=== PATIENT | female | born 1970 | race Caucasian/White ===

== ENCOUNTER 2021-04-26 23:40 | Emergency (ER) | payer OTHER ==
--- NOTE | 2021-04-26 23:46 | ED Trauma-Multisystem ---
General Stated Complaint: FALL Source of Information: Patient, EMS Exam Limitations: No Limitations History of Present Illness Date Seen by Provider: Apr 26, 2021 Time Seen by Provider: 23:38 Initial Comments 51-year-old female with past medical history of hypertension coming in via EMS from home after she fell down some stairs. She was at a wedding earlier tonight and drinking, and tripped down the stairs. Unsure if there was loss of consciousness. EMS reports a laceration to the back of her head. Blood pressure was 90s over 50s. Heart rate normal. She is unsure of her last tetanus vaccine, but did get vaccinated as a child. She is denying any head pain, neck pain, back pain, chest pain, abdominal pain, extremity pain, or any other concerns Allergies and Home Medications Allergies Coded Allergies: tramadol (Verified Allergy, Unknown, 04/26/21) Patient Home Medication List Home Medication List Reviewed: Yes Review of Systems Review of Systems Constitutional: No chills, No fever Eyes: No Symptoms Reported Ears: No Symptoms Reported Nose: No Symptoms Reported Mouth: No Symptoms Reported Throat: No Symptoms to Report Respiratory: no symptoms reported Cardiovascular: No Symptoms Reported Gastrointestinal: no symptoms reported Genitourinary: no symptoms reported : No (Had a hysterectomy) Musculoskeletal: no symptoms reported Skin: no symptoms reported Psychiatric/Neurological: No Symptoms Reported All Other Systems Reviewed Negative Unless Noted: Yes Past Nhypvjt-Elboyz-Ofaxmp Hx Patient Social History Tobacco Use?: Yes Alcohol Use?: Yes Past Medical History Surgeries: Yes Hysterectomy Physical Exam Vital Signs Vital Signs - First Documented 04/26/21 23:40 Pulse 63 Resp 16 B/P (MAP) 96/52 (67) Pulse Ox 100 O2 Delivery Room Air Height, Weight, BMI Height: '" Weight: lbs. oz. kg; BMI Method: General Appearance: No Apparent Distress, WD/WN Head: Other (2 cm laceration to the back of the head) Eyes: Bilateral Eye Normal Inspection, Bilateral Eye PERRL, Bilateral Eye EOMI Ears, Nose, Throat: Hearing Grossly Normal, No Evidence of ENT Injury, No Dental Injury Neck: Normal Inspection, Non Tender, Supple, Other (C-collar in place) Cardiovascular: Regular Rate, Rhythm, No Edema, Normal Peripheral Pulses Respiratory: Chest Non Tender, Lungs Clear, Normal Breath Sounds, No Accessory Muscle Use, No Respiratory Distress Gastrointestinal: Normal Bowel Sounds, Non Tender, Soft; No Distended, No Guarding Back: Normal Inspection, No CVA Tenderness, No Vertebral Tenderness Extremity: Normal Capillary Refill, Normal Inspection, Normal Range of Motion, Non Tender, No Calf Tenderness Neurologic/Psychiatric: Alert, Oriented x3, No Motor/Sensory Deficits, Normal Mood/Affect Skin: Normal Color, Warm/Dry Lymphatic: No Adenopathy [place] Coma Score Best Eye Response ([place]): (3) Open to Voice (Intoxicated) Best Verbal Response ([place]): (5) Oriented Best Motor Response ([place]): (6) Obeys Commands Procedures/Interventions Wound Location: Scalp (occipital) Wound Length (cm): 2 Wound's Depth, Shape: superficial Wound Explored: clean Irrigated w/ Saline (ccs): 250 Betadine Prep?: Yes Anesthesia: Lidocaine w/ Epi Volume Anesthetic (ccs): 3 Staple Repair: Stapler Skin Precise (5 titus used), Patient Given Remover Progress wound hemostatic after stapling Progress/Results/Core Measures Results/Orders Lab Results Laboratory Tests Test 04/26/21 23:50 Range/Units White Blood Count 11.0 4.3-11.0 10^3/uL Red Blood Count 3.82 3.80-5.11 10^6/uL Hemoglobin 13.0 11.5-16.0 g/dL Hematocrit 39 35-52 % Mean Corpuscular Volume 102 H 80-99 fL Mean Corpuscular Hemoglobin 34 25-34 pg Mean Corpuscular Hemoglobin Concent 33 32-36 g/dL Red Cell Distribution Width 11.9 10.0-14.5 % Platelet Count 194 130-400 10^3/uL Mean Platelet Volume 10.9 9.0-12.2 fL Immature Granulocyte % (Auto) 0 % Neutrophils (%) (Auto) 66 42-75 % Lymphocytes (%) (Auto) 28 12-44 % Monocytes (%) (Auto) 4 0-12 % Eosinophils (%) (Auto) 1 0-10 % Basophils (%) (Auto) 0 0-10 % Neutrophils # (Auto) 7.2 1.8-7.8 X 10^3 Lymphocytes # (Auto) 3.1 1.0-4.0 X 10^3 Monocytes # (Auto) 0.5 0.0-1.0 X 10^3 Eosinophils # (Auto) 0.1 0.0-0.3 10^3/uL Basophils # (Auto) 0.0 0.0-0.1 10^3/uL Immature Granulocyte # (Auto) 0.0 0.0-0.1 10^3/uL Sodium Level 140 135-145 MMOL/L Potassium Level 3.7 3.6-5.0 MMOL/L Chloride Level 104 98-107 MMOL/L Carbon Dioxide Level 22 21-32 MMOL/L Anion Gap 14 5-14 MMOL/L Blood Urea Nitrogen 12 7-18 MG/DL Creatinine 0.73 0.60-1.30 MG/DL Estimat Glomerular Filtration Rate 84 BUN/Creatinine Ratio 16 Glucose Level 132 H 70-105 MG/DL Calcium Level 8.8 8.5-10.1 MG/DL My Orders Orders - MINDY MADRID MD Ct Head/Cervical Spine Wo (04/26/21 23:44) Basic Metabolic Panel (04/26/21 23:44) Cbc With Automated Diff (04/26/21 23:44) Ed Iv/Invasive Line Start (04/26/21 23:46) Dipht,Pertuss(Acell),Tet Adult (Boostrix (04/27/21 00:00) Lactated Ringers (Lr 1000 Ml Iv Solution (04/27/21 00:00) Medications Given in ED Current Medications Medications Dose Ordered Sig/Roxy Route Start Time Stop Time Status Last Admin Dose Admin Diphtheria/ Tetanus/Acell Pertussis 0.5 ml ONCE ONCE IM 04/27/21 00:00 04/27/21 00:01 DC 04/26/21 23:58 0.5 ML Vital Signs/I&O 04/26/21 23:40 Pulse 63 Resp 16 B/P (MAP) 96/52 (67) Pulse Ox 100 O2 Delivery Room Air Progress Progress Note : Progress Note 51-year-old female with above history coming in due to trauma after falling down some stairs. GCS was 14 because her eyes were closed and she does seem intoxicated. She does open her eyes to voice and she is fully oriented otherwise. Has a laceration to the back of her head but no other external signs of trauma or pain anywhere on secondary survey. Blood pressure initially was 90/50 with repeat higher than that and improving without any intervention. An IV was placed and basic labs were obtained and she was given a bolus of IV fluids given the softer blood pressure. Pressures continued to be normal after fluids. came later and discussed that it was not a significant amount of blood loss on the floor. The patients hemoglobin was also normal. CT head and c spine negative for acute finding on the overnight statrad read. Likely has a calcified meningioma that has been there. Needs an outpatient MRI brain which I alerted her and to. Her wound was stapled. No other signs of trauma. I believe she is stable for discharge with outpatient follow up. She was sent home with strict return precautions. Departure Impression Primary Impression: Scalp laceration Qualified Codes: S01.01XA - Laceration without foreign body of scalp, initial encounter Additional Impressions: Fall Qualified Codes: W19.XXXA - Unspecified fall, initial encounter Alcohol intoxication Qualified Codes: F10.929 - Alcohol use, unspecified with intoxication, unspecified Disposition: 01 HOME, SELF-CARE Condition: Stable Departure-Patient Inst. Decision time for Depature: 00:40 Patient Instructions: Laceration Repair With [facility] ED Add. Discharge Instructions: Please get the titus out in the next 7-10 days. Be careful when washing your hair that you do not pull them out. You do have what looks to be a benign (not cancer) meningioma in your brain. This will need an outpatient MRI brain to confirm. You will be sore everywhere tomorrow. Take ibuprofen and tylenol for pain. MINDY MADRID MD Apr 26, 2021 23:46
[2021-04-26 23:53] LABS: BASOPHILS % (AUTO) 0 % (0-10); EOSINOPHILS % (AUTO) 1 % (0-10); HEMATOCRIT 39 % (35-52); LYMPHOCYTES # (AUTO) 3.1 X 10^3 (1.0-4.0); LYMPHOCYTES % (AUTO) 28 % (12-44); MEAN CORPUSCULAR HEMOGLOBIN 34 pg (25-34); MEAN CORPUSCULAR HGB CONC 33 g/dL (32-36); MEAN CORPUSCULAR VOLUME 102 fL (80-99); MEAN PLATELET VOLUME 10.9 fL (9.0-12.2); MONOCYTES # (AUTO) 0.5 X 10^3 (0.0-1.0); MONOCYTES % (AUTO) 4 % (0-12); NEUTROPHILS # (AUTO) 7.2 X 10^3 (1.8-7.8); NEUTROPHILS % (AUTO) 66 % (42-75); PLATELET COUNT 194 10^3/uL (130-400)
[2021-04-26 23:54] LABS: EOSINOPHILS # (AUTO) 0.1 10^3/uL (0.0-0.3)
[2021-04-27] MEDS ORDERED: TETANUS,DIPTH,PERTUSS P/F (BOOSTRIX) 0.5 ML VIAL IM ONE
[2021-04-27] MEDS ORDERED: LACTATED RINGERS 1,000 ML IV SCH
[2021-04-27 00:12] LABS: CALCIUM 8.8 MG/DL (8.5-10.1); CREATININE SERUM 0.73 MG/DL (0.60-1.30); POTASSIUM 3.7 MMOL/L (3.6-5.0)
[2021-04-27 00:44] VITALS: BP 96/52
--- NOTE | 2021-04-27 05:56 | Diagnostic Imaging Report ---
PROCEDURE: CT head and CT cervical spine without contrast. TECHNIQUE: Multiple contiguous axial images were obtained through the brain and cervical spine without the use of intravenous contrast. Sagittal and coronal reformations through the cervical spine were then performed. Auto Exposure Controls were utilized during the CT exam to meet ALARA standards for radiation dose reduction. INDICATION: Trauma with head and neck pain CT HEAD: CT images of the head were obtained. FINDINGS: Ventricles and sulci are within normal limits for size. There is no intracranial hemorrhage identified. There is no abnormal mass effect or shift of midline structures. IMPRESSION: Unremarkable CT of the head. CT cervical spine: There is loss of cervical lordosis which could be secondary to muscle spasm or positioning. There is disc space narrowing and endplate irregularity at the C5-C6 level. This is associated with endplate spurring. There is also degenerative facet arthropathy most pronounced on the left at C4-C5. No definite fracture is seen. There are peripheral densities in the visualized lung apices which could represent areas of inflammation or scarring. IMPRESSION: Loss of cervical lordosis may be secondary to muscle spasm or positioning. There is focal disc disease at the C5-C6 level. This could be chronic in nature. Possibility of discitis is not fully excluded. If symptoms persist at this region, consideration could be given to MRI for further characterization. Dictated by: Dictated on workstation # [id number]
== END 2021-04-27 00:45 | disposition home or self-care (01) ==
LOC: EDUNIT# 23:40 → ER FS 23:42
DX: S01.01XA Laceration without foreign body of scalp, initial encounter (principal); F10.929 Alcohol use, unspecified with intoxication, unspecified; I10 Essential (primary) hypertension; Z23 Encounter for immunization; W10.9XXA Fall (on) (from) unspecified stairs and steps, initial encounter
CPT/HCPCS: 12001; 36415; 70450; 72125; 80048; 85025; 90715